=== PATIENT | female | born 1980 | race Caucasian/White ===

== ENCOUNTER 2022-01-13 06:59 | Inpatient (IN) ==
[2022-01-13] MEDS ORDERED: CeFAZolin Syr 2,000MG/20 ML 2,000 MG/20 ML SYRINGE IVPB ONE (07:07)
[2022-01-13] MEDS ORDERED: Ringers Solution, Lactated 1,000 ML IVC SCH (07:15)
[2022-01-13] MEDS ORDERED: *HR* Succinylcholine 200 MG/10 ML VIAL IVP ONE (07:35)
[2022-01-13] MEDS ORDERED: Ondansetron 4 MG/2 ML VIAL ONE (07:35)
[2022-01-13] MEDS ORDERED: *HR* Rocuronium Bromide 50 MG/5 ML VIAL ONE ×4 (07:35→10:15)
[2022-01-13] MEDS ORDERED: Lidocaine -MPF 2% 5 ML VIAL ONE (07:35)
[2022-01-13] MEDS ORDERED: *HR* FentaNYL (PF) 100 MCG/2 ML VIAL ONE ×2 (07:36→09:16)
[2022-01-13] MEDS ORDERED: *HR* Propofol 200 MG/20 ML VIAL IVP ONE (07:36)
[2022-01-13] MEDS ORDERED: *HR* Midazolam HCl 2 MG/2 ML VIAL ONE (07:40)
[2022-01-13] MEDS ORDERED: Ketamine HCL *QUVA* 50mg (1mL) SYRINGE ONE (07:51)
[2022-01-13] MEDS ORDERED: Dexmedetomidine HCl 400 MCG/100 ML MLS IVC ONE (07:51)
[2022-01-13] MEDS ORDERED: *HR* Magnesium Sulfate 1 GM/2 ML VIAL ONE (07:58)
[2022-01-13] MEDS ORDERED: *HR* OxyCODONE Immed Rel 5 MG TABLET PO PRN ×2 (08:06→13:53)
[2022-01-13] MEDS ORDERED: Ondansetron 4 MG/2 ML VIAL IVP PRN ×2 (08:06→13:53)
[2022-01-13] MEDS ORDERED: *HR* HYDROMORPHONE 2 MG/ML VIAL ONE (09:04)
[2022-01-13] MEDS ORDERED: Acetaminophen IV 1,000 MG/100 ML BAG IVPB ONE ×2 (09:52→10:04)
[2022-01-13] MEDS ORDERED: *HR* Labetalol 20 MG/4 ML SYRINGE IVP ONE (09:56)
[2022-01-13] MEDS ORDERED: Sugammadex Sodium 200 MG/2 ML VIAL IV ONE ×2 (11:02→12:16)
[2022-01-13] MEDS ORDERED: Ketorolac 30 MG/ML VIAL ONE (11:21)
[2022-01-13] MEDS: *HR* HYDROmorphone PF 0.5 MG/0.5 ML SYRINGE IVP PRN ×3 (12:49→13:13)
[2022-01-13] MEDS ORDERED: ALPRAZolam 0.5 MG TABLET PO PRN (13:53)
[2022-01-13] MEDS ORDERED: Nicotine 2 MG GUM BC PRN (13:53)
[2022-01-13] MEDS: *HR* Heparin 5,000 UNIT/ML VIAL SQ SCH ×2 (15:36→23:19)
[2022-01-13] MEDS: CeFAZolin 2 GM/120 ML BAG IVPB SCH ×2 (16:20→23:19)
[2022-01-13] MEDS: Famotidine 20 MG/2 ML VIAL IVP SCH (17:34)
[2022-01-13] MEDS: *HR* OxyCODONE Immed Rel 15 MG TABLET PO PRN (17:36)
[2022-01-13] MEDS: *HR* Methadone 10 MG TABLET PO SCH (20:31)
[2022-01-13] MEDS: Pregabalin 50 MG CAPSULE PO SCH (20:31)
[2022-01-13] MEDS: Sennosides 8.6 MG TABLET PO SCH (20:31)
[2022-01-14] MEDS: *HR* OxyCODONE Immed Rel 15 MG TABLET PO PRN (01:37)
[2022-01-14] MEDS: Famotidine 20 MG/2 ML VIAL IVP SCH (05:13)
[2022-01-14 06:07] LABS: Basophils # 0.1 K/mcL (0.0-0.2); Basophils % 0.3 %; Eosinophils # 0.2 K/mcL (0.0-0.6); Eosinophils % 1.3 %; Hemoglobin 13.4 g/dL (11.5-15.4); Immature Granulocytes % 0.3 % (0-4); Lymphocytes # 2.6 K/mcL (0.6-4.6); Lymphocytes % 16.7 %; Mean Corpuscular HGB Conc 31.9 g/dL (31.6-35.5); Mean Corpuscular Hemoglobin 28.2 pg (28.0-33.3); Mean Corpuscular Volume 88.2 fL (83.0-100.0); Mean Platelet Volume 12.1 fL (9.4-12.4); Monocytes % 6.3 %; Neutrophils # 11.7 K/mcL (1.6-8.9); Platelet Count 222 K/mcL (140-400); Red Blood Count 4.76 M/mcL (3.82-4.97); Red Cell Distribution Width 15.7 % (11.5-14.5); Segmented Neutrophils % 75.1 %
[2022-01-14 06:16] LABS: White Blood Count 15.6 K/mcL (4.3-11.1)
[2022-01-14 06:59] LABS: BUN/Creatinine Ratio 25 (6-26); Blood Urea Nitrogen 15 mg/dL (6-20); Calcium 8.8 mg/dL (8.6-10.3); Carbon Dioxide 25 mEq/L (23-29); Chloride 104 mEq/L (98-107); Glucose 105 mg/dL (70-105); Osmolality,Calculated 285 (280-300); Potassium 4.2 mEq/L (3.5-5.1); Sodium 137 mEq/L (136-145); eGFR For African Americans > 60 (> 60); eGFR For Non-African Americans > 60 (> 60)
[2022-01-14 07:40] VITALS: BP 118/83; PULSE 75; TEMP 97.7; O2SAT 96
[2022-01-14] MEDS ORDERED: Ibuprofen 800 MG TABLET PO ONE (08:41)
[2022-01-14] MEDS: Sennosides 8.6 MG TABLET PO SCH (08:46)
[2022-01-14] MEDS: Pregabalin 50 MG CAPSULE PO SCH (08:46)
[2022-01-14] MEDS: *HR* Methadone 10 MG TABLET PO SCH (08:47)
[2022-01-14] MEDS: *HR* Heparin 5,000 UNIT/ML VIAL SQ SCH (08:47)
[2022-01-14] MEDS ORDERED: *HR* Metformin 500 MG TABLET PO SCH (09:00)
== END 2022-01-14 12:41 | disposition home or self-care (01) | DRG 227 ==
LOC: SAMDAY 06:59 → 3ANU 12:27
PROVIDERS: ADMIT Surgery; ATTEND Surgery

== ENCOUNTER 2022-02-14 13:46 | Observation (INO) ==
[~2022-02-14 13:46] MED LIST: Ibuprofen 600 MG TABLET PO PRN; Ondansetron 4 MG/2 ML VIAL IVP PRN
[2022-02-14] MEDS ORDERED: *HR* Dextrose 50 % in Water (Syg) 50 ML SYRINGE IVP PRN (14:06)
[2022-02-14] MEDS ORDERED: D5% in Water 1,000 ML IVC PRN (14:06)
[2022-02-14] MEDS ORDERED: Dextrose Gel 15 GM/37.5 ML TUBE PO PRN ×2 (14:06)
[2022-02-14 15:30] LABS: Basophils # 0.1 K/mcL (0.0-0.2); Basophils % 0.6 %; Eosinophils # 0.7 K/mcL (0.0-0.6); Eosinophils % 7.2 %; Hematocrit 40.8 % (35.3-44.9); Hemoglobin 12.8 g/dL (11.5-15.4); Immature Granulocytes % 0.3 % (0-4); Lymphocytes # 3.6 K/mcL (0.6-4.6); Lymphocytes % 38.2 %; Mean Corpuscular HGB Conc 31.4 g/dL (31.6-35.5); Mean Corpuscular Hemoglobin 27.7 pg (28.0-33.3); Mean Corpuscular Volume 88.3 fL (83.0-100.0); Mean Platelet Volume 10.8 fL (9.4-12.4); Monocytes # 0.7 K/mcL (0.0-1.3); Monocytes % 7.1 %; Neutrophils # 4.4 K/mcL (1.6-8.9); Platelet Count 356 K/mcL (140-400); Red Blood Count 4.62 M/mcL (3.82-4.97); Red Cell Distribution Width 15.2 % (11.5-14.5); Segmented Neutrophils % 46.6 %; White Blood Count 9.3 K/mcL (4.3-11.1)
[2022-02-14 15:38] LABS: INR 1.1; Prothrombin Time 12.2 Seconds (9.4-12.1)
[2022-02-14] MEDS: Ipratropium/Albuterol Neb 3 ML IH SCH ×2 (15:44→22:48)
[2022-02-14 15:47] LABS: BUN/Creatinine Ratio 23 (6-26); Blood Urea Nitrogen 17 mg/dL (6-20); Calcium 9.1 mg/dL (8.6-10.3); Carbon Dioxide 27 mEq/L (23-29); Chloride 103 mEq/L (98-107); Glucose 115 mg/dL (70-105); Osmolality,Calculated 288 (280-300); Potassium 3.9 mEq/L (3.5-5.1); Sodium 138 mEq/L (136-145)
[2022-02-14 15:54] LABS: Estimated Average Glucose 134 mg/dl; Hemoglobin A1C 6.3 %
[2022-02-14] MEDS: Insulin LISPRO 300 UNITS/3 ML VIAL SUBQ SCH (16:28)
[2022-02-14] MEDS: *HR* OxyCODONE Immed Rel 15 MG TABLET PO PRN ×2 (17:37→22:07)
[2022-02-14] MEDS: MetroNIDAZOLE 500 MG/100 ML 500 MG/100 ML BAG IVPB SCH (17:38)
[2022-02-14] MEDS: Famotidine 20 MG/2 ML VIAL IVP SCH (17:38)
[2022-02-14] MEDS: Nicotine 14 MG PATCH.TD24 TD SCH (17:39)
[2022-02-14] MEDS ORDERED: Pregabalin 50 MG CAPSULE PO SCH (21:00)
[2022-02-14] MEDS ORDERED: Topiramate 25 MG TABLET PO SCH (21:00)
[2022-02-14] MEDS ORDERED: *HR* Methadone 10 MG TABLET PO SCH (21:00)
[2022-02-15] MEDS ORDERED: Ringers Solution, Lactated 1,000 ML IVC SCH (00:01)
[2022-02-15] MEDS: Insulin LISPRO 300 UNITS/3 ML VIAL SUBQ SCH ×4 (00:15→17:58)
[2022-02-15] MEDS: MetroNIDAZOLE 500 MG/100 ML 500 MG/100 ML BAG IVPB SCH ×3 (00:15→15:56)
[2022-02-15] MEDS: Ipratropium/Albuterol Neb 3 ML IH SCH ×4 (04:01→22:50)
[2022-02-15] MEDS: Famotidine 20 MG/2 ML VIAL IVP SCH ×2 (05:35→17:58)
[2022-02-15] MEDS: *HR* OxyCODONE Immed Rel 15 MG TABLET PO PRN ×3 (05:35→22:25)
[2022-02-15] MEDS ORDERED: *HR* Propofol 200 MG/20 ML VIAL IVP ONE (07:38)
[2022-02-15] MEDS ORDERED: Lidocaine -MPF 2% 5 ML VIAL ONE (07:38)
[2022-02-15] MEDS ORDERED: *HR* FentaNYL (PF) 100 MCG/2 ML VIAL ONE (07:38)
[2022-02-15] MEDS ORDERED: Ondansetron 4 MG/2 ML VIAL ONE ×2 (07:38→10:49)
[2022-02-15] MEDS ORDERED: *HR* Succinylcholine 200 MG/10 ML VIAL IVP ONE (07:38)
[2022-02-15] MEDS ORDERED: *HR* Rocuronium Bromide 50 MG/5 ML VIAL ONE (07:38)
[2022-02-15] MEDS ORDERED: *HR* Midazolam HCl 2 MG/2 ML VIAL ONE (07:38)
[2022-02-15] MEDS ORDERED: *HR* HYDROmorphone PF 0.5 MG/0.5 ML SYRINGE IVP PRN ×2 (08:20→11:18)
[2022-02-15] MEDS ORDERED: Ketamine HCL *QUVA* 50mg (1mL) SYRINGE ONE (08:49)
[2022-02-15] MEDS ORDERED: Loratadine 10 MG TABLET PO SCH (09:00)
[2022-02-15] MEDS ORDERED: EPHEDrine 50 MG/ML VIAL ONE (09:16)
[2022-02-15] MEDS ORDERED: *HR* HYDROMORPHONE 2 MG/ML VIAL ONE (09:44)
[2022-02-15] MEDS ORDERED: Ringers Solution, Lactated 500 ML ONE (10:52)
[2022-02-15] MEDS ORDERED: Ibuprofen 600 MG TABLET PO PRN (11:18)
[2022-02-15] MEDS ORDERED: *HR* Dextrose 50 % in Water (Syg) 50 ML SYRINGE IVP PRN (11:18)
[2022-02-15] MEDS ORDERED: Ondansetron 4 MG/2 ML VIAL IVP PRN (11:18)
[2022-02-15] MEDS ORDERED: Dextrose Gel 15 GM/37.5 ML TUBE PO PRN ×2 (11:18)
[2022-02-15] MEDS ORDERED: D5% in Water 1,000 ML IVC PRN (11:18)
[2022-02-15] MEDS: Ringers Solution, Lactated 1,000 ML IVC SCH (12:24)
[2022-02-15] MEDS: *HR* Methadone 10 MG TABLET PO SCH ×2 (15:32→22:25)
[2022-02-15] MEDS: Pregabalin 50 MG CAPSULE PO SCH ×2 (15:32→22:26)
[2022-02-15] MEDS: Nicotine 14 MG PATCH.TD24 TD SCH ×2 (15:57→22:26)
[2022-02-15] MEDS: Topiramate 25 MG TABLET PO SCH (22:26)
[2022-02-16] MEDS: Insulin LISPRO 300 UNITS/3 ML VIAL SUBQ SCH ×5 (01:23→22:29)
[2022-02-16] MEDS: MetroNIDAZOLE 500 MG/100 ML 500 MG/100 ML BAG IVPB SCH ×3 (01:23→15:47)
[2022-02-16] MEDS: Ipratropium/Albuterol Neb 3 ML IH SCH ×4 (03:57→21:53)
[2022-02-16] MEDS: Famotidine 20 MG/2 ML VIAL IVP SCH ×2 (07:36→18:19)
[2022-02-16] MEDS: *HR* OxyCODONE Immed Rel 15 MG TABLET PO PRN ×3 (07:36→22:28)
[2022-02-16] MEDS: Pregabalin 50 MG CAPSULE PO SCH ×3 (08:46→22:26)
[2022-02-16] MEDS: Loratadine 10 MG TABLET PO SCH (08:47)
[2022-02-16] MEDS: Ringers Solution, Lactated 1,000 ML IVC SCH (08:48)
[2022-02-16] MEDS: *HR* Methadone 10 MG TABLET PO SCH ×3 (08:51→22:27)
[2022-02-16] MEDS ORDERED: Nicotine 14 MG PATCH.TD24 TD SCH (09:00)
[2022-02-16] MEDS: ALPRAZolam 0.5 MG TABLET PO SCH (13:01)
[2022-02-16] MEDS: *HR* HYDROmorphone (PF) 1 MG/ML SYRINGE IVP PRN (15:46)
[2022-02-16] MEDS: Nicotine 14 MG PATCH.TD24 TD SCH (22:26)
[2022-02-16] MEDS: Topiramate 25 MG TABLET PO SCH (22:27)
[2022-02-17] MEDS: MetroNIDAZOLE 500 MG/100 ML 500 MG/100 ML BAG IVPB SCH ×3 (00:46→15:07)
[2022-02-17] MEDS: Ringers Solution, Lactated 1,000 ML IVC SCH ×2 (00:46→20:51)
[2022-02-17] MEDS: *HR* HYDROmorphone (PF) 1 MG/ML SYRINGE IVP PRN ×3 (00:50→17:19)
[2022-02-17] MEDS: Ipratropium/Albuterol Neb 3 ML IH SCH ×4 (04:01→23:05)
[2022-02-17] MEDS: *HR* OxyCODONE Immed Rel 15 MG TABLET PO PRN ×3 (04:18→20:41)
[2022-02-17] MEDS: Famotidine 20 MG/2 ML VIAL IVP SCH ×2 (06:54→17:18)
[2022-02-17] MEDS: Insulin LISPRO 300 UNITS/3 ML VIAL SUBQ SCH ×4 (08:09→20:44)
[2022-02-17] MEDS: Pregabalin 50 MG CAPSULE PO SCH ×3 (08:10→20:40)
[2022-02-17] MEDS: ALPRAZolam 0.5 MG TABLET PO SCH (08:10)
[2022-02-17] MEDS: Loratadine 10 MG TABLET PO SCH (08:10)
[2022-02-17] MEDS: *HR* Methadone 10 MG TABLET PO SCH ×3 (08:11→20:40)
[2022-02-17] MEDS: Topiramate 25 MG TABLET PO SCH (20:41)
[2022-02-17] MEDS: Nicotine 14 MG PATCH.TD24 TD SCH (20:50)
[2022-02-18] MEDS: MetroNIDAZOLE 500 MG/100 ML 500 MG/100 ML BAG IVPB SCH ×2 (01:58→08:53)
[2022-02-18] MEDS: *HR* HYDROmorphone (PF) 1 MG/ML SYRINGE IVP PRN (01:58)
[2022-02-18] MEDS: Ipratropium/Albuterol Neb 3 ML IH SCH ×2 (04:14→11:12)
[2022-02-18] MEDS: *HR* OxyCODONE Immed Rel 15 MG TABLET PO PRN ×2 (06:38→12:55)
[2022-02-18] MEDS: Famotidine 20 MG/2 ML VIAL IVP SCH (06:38)
[2022-02-18] MEDS: Pregabalin 50 MG CAPSULE PO SCH (08:35)
[2022-02-18] MEDS: Loratadine 10 MG TABLET PO SCH (08:35)
[2022-02-18] MEDS: Insulin LISPRO 300 UNITS/3 ML VIAL SUBQ SCH ×2 (08:52→12:14)
[2022-02-18] MEDS: ALPRAZolam 0.5 MG TABLET PO SCH (08:53)
[2022-02-18] MEDS: *HR* Methadone 10 MG TABLET PO SCH (09:38)
[2022-02-18 10:39] VITALS: BP 122/87; PULSE 89; TEMP 98.4
[2022-02-18 14:46] VITALS: O2SAT 94
== END 2022-02-18 14:27 | disposition home health service (06) ==
LOC: 3ANU
PROVIDERS: ADMIT Surgery; ATTEND Surgery